=== PATIENT | female | born 1935 | race Caucasian/White ===

== ENCOUNTER 2022-03-15 09:33 | Outpatient (CLI) | payer MEDICARE, OTHER | END 2022-03-15 09:34 | disposition home or self-care (01) | LOC: CSHCT 09:33 | PROVIDERS: ATTEND Otolaryngology Plastic Surgery within the Head & Neck | DX: H90.3 Sensorineural hearing loss, bilateral (principal) | CPT/HCPCS: 70480 ==

== ENCOUNTER 2022-12-09 10:24 | Outpatient (CLI) | payer MEDICARE, OTHER, MEDICAID ==
[2022-12-09 12:25] LABS: Hematocrit 33.8 % (34.9-44.5); Mean Corpuscular HGB CONC 32.5 g/dL (32.0-36.0); Mean Corpuscular Hemoglobin 29.8 pg (27.0-33.0); Mean Corpuscular Volume 91.6 fl (81.6-98.3); Mean Platelet Volume 9.7 fl (7.4-10.4); Platelet Count 351 10x3/uL (150-450); RBC Distribution Width 13.7 % (11.5-14.5); Red Blood Cell (RBC) Count 3.69 10x6/uL (3.90-5.03); White Blood Cell (WBC) Count 7.7 10x3/uL (3.5-10.5)
[2022-12-09 12:49] LABS: Anion Gap 17 mmol/L (10-20); BUN (Urea Nitrogen) 22 mg/dL (9.8-20.1); Calc. Creatinine Clearance 0 mL/min (70-130); Calcium 9.2 mg/dL (7.8-10.44); Carbon Dioxide 23 mmol/L (23-31); Chloride 107 mmol/L (98-107); Estimated GFR 40; Glucose 87 mg/dL (83-110); Potassium 4.8 mmol/L (3.5-5.1); Sodium 142 mmol/L (136-145)
== END 2022-12-09 10:25 | disposition home or self-care (01) ==
LOC: CSHLAB 10:24
PROVIDERS: ATTEND Otolaryngology Plastic Surgery within the Head & Neck
DX: Z01.818 Encounter for other preprocedural examination (principal); H90.A21 Sensorineural hearing loss, unilateral, right ear, with restricted hearing on the contralateral side
CPT/HCPCS: 80048; 85027; 93005; 93010

== ENCOUNTER 2022-12-10 07:05 | Day surgery (SDC) | payer MEDICARE, OTHER, MEDICAID ==
[2022-12-09 11:57] VITALS: BMI 29.9
[2022-12-10] MEDS ORDERED: Dexamethasone 20 MG/5 ML VIAL ONE (07:34)
[2022-12-10] MEDS ORDERED: Ondansetron PF 4 MG/2 ML Vial ONE (07:34)
[2022-12-10] MEDS ORDERED: Ketorolac Tromethamine 30 MG/ML VIAL ONE (07:34)
[2022-12-10] MEDS ORDERED: PROPOFOL 0 ML ONE ×2 (07:34)
[2022-12-10] MEDS ORDERED: Lidocaine 1% PF 5 ML VIAL ONE (07:34)
[2022-12-10] MEDS ORDERED: EPINEPHrine 1 MG/ML VIAL ONE (07:34)
[2022-12-10] MEDS ORDERED: Rocuronium Bromide 10 MG/ML (10ML VIAL) ONE (07:34)
[2022-12-10] MEDS ORDERED: Fentanyl 250 MCG/5 ML VIAL ONE (07:34)
[2022-12-10] MEDS ORDERED: Midazolam HCl 2 mg/2 ml Vial ONE (07:34)
[2022-12-10] MEDS ORDERED: PHENYLEPHRINE-NS 100 MCG/ML 10 ML SYRINGE ONE (07:34)
[2022-12-10] MEDS ORDERED: Lidocaine 1% w/Epinephrine 1:100K 20 ML VIAL ONE (07:38)
[2022-12-10] MEDS ORDERED: Mupirocin 2% Ointment 22 GM Tube ONE (07:38)
[2022-12-10] MEDS ORDERED: CEFAZOLIN 1 GM VIAL ONE (07:59)
[2022-12-10] MEDS ORDERED: ePHEDrine Sulfate 50 MG/10 ML VIAL ONE (08:37)
== END 2022-12-10 11:45 | disposition home or self-care (01) ==
LOC: CSHSDC 07:05
PROVIDERS: ATTEND Otolaryngology Plastic Surgery within the Head & Neck
PROC: 09HD05Z Insertion of Single Channel Cochlear Prosthesis into Right Inner Ear, Open Approach (ICD-10-PCS; principal; 2022-12-10)
DX: H90.3 Sensorineural hearing loss, bilateral (principal); H61.23 Impacted cerumen, bilateral; Z87.891 Personal history of nicotine dependence; I10 Essential (primary) hypertension; E78.5 Hyperlipidemia, unspecified; Z86.73 Personal history of transient ischemic attack (TIA), and cerebral infarction without residual deficits; Z79.84 Long term (current) use of oral hypoglycemic drugs; Z79.899 Other long term (current) drug therapy
CPT/HCPCS: 69930; 70250; J0171; L8614 ×2; Q9968; J0690; J1100; J1885; J2250; J2405; J2704; J3010

== ENCOUNTER 2022-12-17 12:46 | Emergency (ER) | payer MEDICARE, OTHER, MEDICAID | END 2022-12-17 21:27 | LOC: CSHERS 12:46 | DX: M79.604 Pain in right leg (principal); I10 Essential (primary) hypertension ==